=== PATIENT | male | born 1965 | race Caucasian/White ===

== ENCOUNTER 2016-12-02 16:52 | Observation (INO) | payer BC ==
[2016-12-02] MEDS ORDERED: SODIUM CHLORIDE 0.9% 1,000 ML IV STA ×2 (17:42)
[2016-12-02] MEDS ORDERED: ACETAMINOPHEN TAB 500 MG TAB PO STA (17:42)
[2016-12-02 18:03] LABS: Basophils # (A) 0.1 k/uL (0-0.2); Basophils % (A) 1 %; CH 31.7; CHCM 35.7; Eosinophils # (A) 0.1 k/uL (0-0.7); Eosinophils % (A) 2 %; HCT 41.8 % (39.0-53.0); HDW 2.59; HGB 14.8 gm/dL (13.0-17.5); Luc # (Auto) 0.13; Luc % (Auto) 2; Lymphocytes # (A) 1.2 k/uL (1.0-4.8); Lymphocytes % (A) 20 %; MCH 31.7 pg (25.0-35.0); MCHC 35.5 g/dL (31.0-37.0); MCV 89.3 fL (80.0-100.0); Mean Platelet Volume 7.8; Monocytes # (A) 0.4 k/uL (0-1.0); Monocytes % (A) 6 %; Neutrophils # (A) 4.2 k/uL (1.3-7.7); Neutrophils % (A) 69 %; RBC 4.68 m/uL (4.30-5.90); RDW 12.1 % (11.5-15.5); WBC 6.1 k/uL (3.8-10.6); WBC (Perox) 6.12
[2016-12-02 18:07] LABS: ALT 32 U/L (21-72); AST 28 U/L (17-59); Alkaline Phosphatase 71 U/L (38-126); Anion Gap 12 mmol/L; Blood Urea Nitrogen 12 mg/dL (9-20); Calcium 8.5 mg/dL (8.4-10.2); Carbon Dioxide 24 mmol/L (22-30); Chloride 104 mmol/L (98-107); Glucose 115 mg/dL (74-99); Magnesium 1.8 mg/dL (1.6-2.3); Non-African American GFR(MDRD) >60 (>60 ml/min/1.73 sqM); Phosphorous 2.9 mg/dL (2.5-4.5); Potassium 3.7 mmol/L (3.5-5.1); Sodium 140 mmol/L (137-145); Total Bilirubin 0.6 mg/dL (0.2-1.3); Total Protein 6.8 g/dL (6.3-8.2)
[2016-12-02 18:08] LABS: Partial Thromboplastin Time 22.5 sec (22.0-30.0); Prothrombin Time 10.4 sec (9.0-12.0)
[2016-12-02 18:17] LABS: Creatine Kinase 73 U/L (55-170)
--- NOTE | 2016-12-02 18:27 | XR ---
EXAMINATION TYPE: XR chest 2V DATE OF EXAM: 12/02/2016 6:08 PM COMPARISON: NONE HISTORY: Weakness TECHNIQUE: Frontal and lateral views of the chest are obtained. FINDINGS: Heart and mediastinum are normal. Lungs are clear. There are chest leads. Diaphragm is nor mal. Bony thorax is intact. IMPRESSION: Normal chest.
[2016-12-02 18:30] LABS: Creatine Kinase MB 0.4 ng/mL (0.0-2.4); Troponin I <0.012 ng/mL (0.000-0.034)
[2016-12-02 18:37] LABS: Appearance,Urine Clear (Clear); Bilirubin,Urine Negative (Negative); Glucose,Urine (UA) Negative (Negative); Ketones,Urine Negative (Negative); Leukocyte Esterase,Urine Negative (Negative); Nitrite,Urine Negative (Negative); PH, Urine 5.5 (5.0-8.0); Protein,Urine Trace (Negative); Specific Gravity,Urine 1.012 (1.001-1.035); UA Billing (MACRO vs. MICRO) CHEM; Urobilinogen,Urine <2.0 mg/dL (<2.0)
[2016-12-02] MEDS ORDERED: IPRATROPIUM-ALBUTEROL 3 ML NEB INHALATION STA (20:56)
[2016-12-02] MEDS ORDERED: LEVOFLOXACIN 750MG-D5W PMX 750 MG in DEXTROSE/WATER 1 150ML.BAG IVPB STA (20:57)
[2016-12-02] MEDS ORDERED: ASPIRIN 81 MG CHEW PO STA (20:57)
[2016-12-02] MEDS ORDERED: NITROGLYCERIN OINT 1 INCH/GM PACKET TOPICAL STA (20:57)
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
[2016-12-02] MEDS ORDERED: NITROGLYCERIN SL TABS 0.4 MG TAB SUBLINGUAL PRN (21:05)
[2016-12-02] MEDS ORDERED: IPRATROPIUM-ALBUTEROL 3 ML NEB INHALATION PRN (22:06)
[2016-12-02] MEDS: ENOXAPARIN 40 MG/0.4 ML SYRINGE SQ SCH (23:20)
[2016-12-03] MEDS ORDERED: IPRATROPIUM-ALBUTEROL 3 ML NEB INHALATION SCH
[2016-12-03] MEDS: TIMOLOL 0.5% OPHTH DROPS 5 ML BTL BOTH EYES SCH ×3 (00:14→20:00)
[2016-12-03 00:48] LABS: Creatine Kinase 57 U/L (55-170)
[2016-12-03 01:01] LABS: Creatine Kinase MB <0.2 ng/mL (0.0-2.4); Troponin I <0.012 ng/mL (0.000-0.034)
[2016-12-03 02:39] LABS: Cholesterol 153 mg/dL (<200); HDL Cholesterol 32 mg/dL (40-60); Triglycerides 136 mg/dL (<150)
[2016-12-03 04:09] LABS: Glucose,Whole Blood 112 mg/dL (75-99)
[2016-12-03] MEDS: NITROGLYCERIN OINT 1 INCH/GM PACKET TOPICAL SCH ×4 (05:09→20:01)
[2016-12-03 06:05] LABS: Creatine Kinase 54 U/L (55-170)
[2016-12-03 06:18] LABS: Creatine Kinase MB 0.3 ng/mL (0.0-2.4); Troponin I <0.012 ng/mL (0.000-0.034)
[2016-12-03] MEDS: PANTOPRAZOLE 40 MG TABLET PO SCH (12:21)
[2016-12-03] MEDS: LOSARTAN 50 MG TAB PO SCH (12:21)
[2016-12-03] MEDS: ASPIRIN 325 MG TAB PO SCH (12:21)
--- NOTE | 2016-12-03 12:44 | CONS ---
DATE OF CONSULTATION: Patient admitted to the hospital following a blood draw with syncopal episode, appears to be first episode, never happened before, definitely appears to be vasovagal syncope without any chest pain or pressure. Patient has been having some acute bronchitis with purulent sputum for the last few days prior to admission. Patient had low blood pressure drop from the dehydration and acute bronchitis. I do not think there are any cardiac problems. I did a stress Cardiolite study on him in 2012. Patient exercised on the Laz protocol for about 12 minutes, attained a peak heart rate metabolic length of 13 METS with normal stress echocardiogram. Patient has no major risk factors other than patient's age and hypertension, which is well controlled at present time. Will drop the losartan to 50 mg p.o. daily rather than 100. Other medications include Prilosec 20 mg p.o. daily. Patient is a former smoker, quit smoking a long time ago, history of hypertension, otherwise unremarkable. Physical examination revealed well-developed, well-nourished 51-year-old gentleman, not in any acute distress, oriented x3 with a pulse rate of 60 beats per minute and regular, blood pressure 96/52, respirations of 16. Head normocephalic. HEENT unremarkable. Neck is supple. No thyroid enlargement. CARDIAC EXAMINATION: S1 and S2. No gallops or murmurs are noted. Lungs are clinically clear to auscultation except for scattered rhonchi. ABDOMEN: Soft, no organomegaly. Active bowel sounds. EXTREMITIES: Peripheral pulses. No pedal edema. AERODYNAMICS PROFESSOR examination grossly within normal limits. EKG normal. Troponin x3 are negative. ASSESSMENT: 1. Vasovagal syncope. No further cardiac work-up is needed for this, associated with a blood draw. 2. Acute bronchitis being treated with antibiotics appropriately. RECOMMENDATIONS: No cardiac work-up is needed at the present time. Patient may go home any time either today or tomorrow and follow with Dr. Berumen. Will be more than happy to see him in the office if necessary.
--- NOTE | 2016-12-03 13:08 | ECHOF ---
Referral Reason: MEASUREMENTS -------- HEIGHT: 177.8 cm WEIGHT: 87.1 kg BP: 96/52 IVSd: 1.7 cm (0.6 - 1.1) LVIDd: 4.3 cm (3.9 - 5.3) LVPWd: 1.5 cm (0.6 - 1.1) IVSs: 1.9 cm LVIDs: 2.3 cm LVPWs: 2.2 cm Ao Diam: 2.9 cm (2.0 - 3.7) AV Cusp: 1.9 cm (1.5 - 2.6) LA Diam: 3.7 cm (2.7 - 3.8) MV EXCURSION: 15.271 mm (> 18.000) MV EF SLOPE: 112 mm/s (70 - 150) EPSS: 0.5 cm MV E Clement: 0.80 m/s MV DecT: 248 ms MV A Clement: 0.71 m/s MV E/A Ratio: 1.13 RAP: 5.00 mmHg RVSP: 23.87 mmHg FINDINGS -------- Sinus rhythm. This was a technically good study. The left ventricular size is normal. There is moderate concentric left ventricular hypertrophy. Overall left ventricular systolic function is normal with, an EF between 55 - 60 %. The right ventricle is normal in size and function. The left atrium is normal in size. The right atrium is normal in size. The aortic valve is trileaflet, and appears structurally normal. No aortic stenosis or regurgitation. The mitral valve is normal. Mild mitral regurgitation is present. The tricuspid valve appears structurally normal. Mild tricuspid regurgitation present. The right ventricular systolic pressure, as measured by Doppler, is 23.87mmHg. There is no pulmonic regurgitation present. The aortic root size is normal. There is no pericardial effusion. CONCLUSIONS -------- 1. Sinus rhythm. 2. There is no pulmonic regurgitation present. 3. The aortic root size is normal. 4. There is no pericardial effusion. 5. This was a technically good study. 6. There is moderate concentric left ventricular hypertrophy. 7. Overall left ventricular systolic function is normal with, an EF between 55 - 60 %. 8. The left atrium is normal in size. 9. The aortic valve is trileaflet, and appears structurally normal. No aortic stenosis or regurgitation. 10. Mild mitral regurgitation is present. 11. Mild tricuspid regurgitation present. 12. The right ventricular systolic pressure, as measured by Doppler, is 23.87mmHg. DENTIST ATTENDANT: Maribell Whitehead RDCS
[2016-12-03] MEDS: ENOXAPARIN 40 MG/0.4 ML SYRINGE SQ SCH (20:00)
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
[2016-12-03] MEDS ORDERED: LEVOFLOXACIN 750MG-D5W PMX 750 MG in DEXTROSE/WATER 1 150ML.BAG IVPB SCH (22:00)
[2016-12-04 03:41] VITALS: RESP 16
[2016-12-04 07:41] VITALS: BP 118/71; PULSE 51; TEMP 98.7
[2016-12-04] MEDS: PANTOPRAZOLE 40 MG TABLET PO SCH (09:02)
[2016-12-04] MEDS: ASPIRIN 325 MG TAB PO SCH (09:02)
[2016-12-04] MEDS: TIMOLOL 0.5% OPHTH DROPS 5 ML BTL BOTH EYES SCH (09:02)
[2016-12-04] MEDS: LOSARTAN 50 MG TAB PO SCH (09:04)
== END 2016-12-04 10:02 | disposition home or self-care (01) ==
LOC: EC 16:52 → 3OBS 21:09
PROVIDERS: ADMIT Family Medicine; ATTEND Family Medicine
DX: J20.9 Acute bronchitis, unspecified (principal); R55 Syncope and collapse; E86.0 Dehydration; I95.9 Hypotension, unspecified; M79.1 Myalgia; I10 Essential (primary) hypertension; Z79.899 Other long term (current) drug therapy; Z87.891 Personal history of nicotine dependence; Z83.3 Family history of diabetes mellitus
CPT/HCPCS: 99285; 96365; 96361 ×4; 36415; 94640; 93005; 93306; 80061; 80053; 82550 ×2; 82553 ×2; 83735; 84100; 84443; 84484 ×2; 85025; 85610; 85730; 81003; 87040; 87502; 71020; G0378 ×3; J1650; J1956 ×2; 96366

== ENCOUNTER 2018-10-06 14:31 | Emergency (ER) | payer BC ==
[2018-10-06 14:36] VITALS: RESP 18
--- NOTE | 2018-10-06 15:38 | US ---
EXAMINATION TYPE: US axilla LT DATE OF EXAM: 10/06/2018 COMPARISON: NONE CLINICAL HISTORY: Pain. Left Axilla palpable noted x 3 days with soreness and patient stated was january [place]. Lt Axillary US: heterogeneous mass noted at patient's palpable and size = 4.8 x 3.7 x 3.0cm. IMPRESSION: As above, heterogeneous mass favors abnormal adenopathy. Findings do not correlate with patient's history. No well-formed fluid collection to suggest abscess or hematoma is noted. Advise la b and clinical correlation. At minimum repeat ultrasound in 2-4 weeks' time is advised to reassess.
[2018-10-06 16:02] LABS: Basophils # (A) 0.1 k/uL (0-0.2); Basophils % (A) 1 %; Eosinophils # (A) 0.3 k/uL (0-0.7); Eosinophils % (A) 3 %; HCT 42.7 % (39.0-53.0); HGB 14.7 gm/dL (13.0-17.5); Lymphocytes # (A) 1.6 k/uL (1.0-4.8); Lymphocytes % (A) 20 %; MCH 31.2 pg (25.0-35.0); MCHC 34.4 g/dL (31.0-37.0); MCV 90.7 fL (80.0-100.0); Mean Platelet Volume 7.2; Monocytes # (A) 0.5 k/uL (0-1.0); Monocytes % (A) 6 %; Neutrophils # (A) 5.5 k/uL (1.3-7.7); Neutrophils % (A) 67 %; Platelet Count 209 k/uL (150-450); RBC 4.71 m/uL (4.30-5.90); RDW 12.7 % (11.5-15.5); WBC 8.2 k/uL (3.8-10.6)
[2018-10-06 16:05] LABS: ALT 25 U/L (21-72); AST 18 U/L (17-59); Albumin 4.2 g/dL (3.5-5.0); Alkaline Phosphatase 92 U/L (38-126); Anion Gap 7 mmol/L; Blood Urea Nitrogen 19 mg/dL (9-20); Carbon Dioxide 26 mmol/L (22-30); Chloride 109 mmol/L (98-107); Glucose 104 mg/dL (74-99); Sodium 142 mmol/L (137-145); Total Bilirubin 0.7 mg/dL (0.2-1.3); Total Protein 7.1 g/dL (6.3-8.2)
--- NOTE | 2018-10-06 16:10 | ED ---
General Adult HPI - General Chief complaint: Skin/Abscess/Foreign Body Stated complaint: lump under arm Time Seen by Provider: 10/06/18 14:37 Source: patient, RN notes reviewed, old records reviewed Mode of arrival: ambulatory Limitations: no limitations - History of Present Illness Initial comments: 53-year-old male patient past medical history of hypertension plus ED with mass in left axilla. Patient reports that he noticed mass approximately 3 days ag, states that is increased in size. Patient reports that mass in his L axilla. State ssize is approximately 4 x 4 centimeters in diameter is mildly tender to touch, but is been no redness no warmth or drainage. Patient additionally denies any fevers chills, nausea vomiting diarrhea, patient denies all other complaints. Patient has secondary complaint of mild inflammation and pad of right thumb where patient had a thorn from a chidi stuck approximately 3 weeks ago. Area appears to be healing well but he does have some local redness, requests antibiotic to prevent infection. Systemic: Pt denies fatigue, myalgia, fever/chills, rash. Pt denies weakness, night sweats, weight loss. Neuro: Pt denies headache, visual disturbances, syncope or pre-syncope. HEENT: Pt denies ocular discharge or irritation, otalgia, rhinorrhea, pharyngitis or notable lymphadenopathy. Cardiopulmonary: Pt denies chest pain, SOB, heart palpitations, dyspnea on exertion. Abdominal/GI: Pt denies abdominal pain, n/v/d. : Pt denies dysuria, burning w/ urination, frequency/urgency. Denies new onset urinary or bowel incontinence. MSK: Pt denies myalgia, loss of strength or function in extremities. Neuro: Pt denies new onset weakness, paresthesias. - Related Data Home Medications Medication Instructions Recorded Confirmed Losartan Potassium [Cozaar] 50 mg PO DAILY 12/02/16 12/04/16 Omeprazole [PriLOSEC] 20 mg PO AC-BRKFST 12/02/16 12/02/16 Timolol 0.5% Ophth Soln [Timoptic 1 drop BOTH EYES BID 12/02/16 12/02/16 0.5% Ophth Soln] Previous Rx's Medication Instructions Recorded Cephalexin [Keflex] 500 mg PO Q12HR 10 Days cap 10/06/18 Allergies Allergy/AdvReac Type Severity Reaction Status Date / Time [place] And Derivatives Allergy Unknown Verified 10/06/18 14:36 [Bosque] Review of Systems ROS Statement: Those systems with pertinent positive or pertinent negative responses have been documented in the HPI. ROS Other: All systems not noted in ROS Statement are negative. Past Medical History Past Medical History: Hypertension Additional Past Medical History / Comment(s): ulcer History of Any Multi-Drug Resistant Organisms: None Reported Past Surgical History: Hernia Repair, Tonsillectomy Additional Past Surgical History / Comment(s): colonoscopy with 2 polyp removal Past Anesthesia/Blood Transfusion Reactions: No Reported Reaction Past Psychological History: No Psychological Hx Reported Smoking Status: Former smoker Past Alcohol Use History: Rare Past Drug Use History: None Reported - Past Family History Mother Family Medical History: Cancer Additional Family Medical History / Comment(s): uterine Father Family Medical History: Diabetes Mellitus, Hypertension Brother(s) Family Medical History: Cancer Sister(s) Family Medical History: No Reported History Son(s) Family Medical History: No Reported History Daughter(s) Family Medical History: No Reported History General Exam - General Exam Comments Initial Comments: Constitutional: NAD, AOX3, Pt has pleasant affect. HEENT: NC/AT, trachea midline, neck supple, no lymphadenopathy. Posterior pharynx non erythematous, without exudates. External ears appear normal, without discharge. Mucous membranes moist. Eyes PERRLA, EOM intact. There is no scleral icterus. No pallor noted. Cardiopulmonary: RRR, no murmurs, rubs or gallops, no JVD noted. Lungs CTAB in anterior and posterior tejeda. No peripheral edema. Abdominal exam: Abdomen soft and non-distended. Abdomen non-tender to palpation in all 4 quadrants. Bowel sounds active in LLQ. No hepatosplenomegaly. No ecchymosis Neuro: CN II-XII grossly intact. No nuchal rigidity. MSK: Approximately 4x4cm mass noted in L axilla, no localized erythema or drainge. Mildly tender to palpation. No posterior calf tenderness bilaterally, homans sign negative bilaterally. Posterior tibialis and radial pulse +2 bilaterally. Sensation intact in upper and lower extremities. Full active ROM in upper and lower extremities, 5/5 stregnth. Small amount of localized erythema at pad on R thumb, no pain with passive flexion, no flexor tendon sheath tenderness, full active ROM, no discharge or erythema. Limitations: no limitations Course Vital Signs 10/06/18 14:32 Temperature 98.2 F Pulse Rate 73 Respiratory 18 Rate Blood Pressure 159/88 O2 Sat by Pulse 95 Oximetry Medical Decision Making - Medical Decision Making 53-year-old male patient past medical history of hypertension plus ED with mass in left axilla. Patient reports that he noticed mass approximately 3 days ag, states that is increased in size. Patient reports that mass in his L axilla. State size is approximately 4 x 4 centimeters in diameter is mildly tender to touch, but is been no redness no warmth or drainage. Patient has secondary complaint of mild inflammation and pad of right thumb where patient had a thorn from a chidi stuck approximately 3 weeks ago. Area appears to be healing well but he does have some local redness, requests antibiotic to prevent infection. Patient additionally denies any fevers chills, nausea vomiting diarrhea, patient denies all other complaints. Pt VSS, afebrile. Physical exam displayed: Approximately 4x4cm mass noted in L axilla, no localized erythema or drainge. Mildly tender to palpation. Radial pulse +2, sensation intact, strength 5/5. Small amount of localized erythema at pad on R thumb, no pain with passive flexion, no flexor tendon sheath tenderness, full active ROM, no discharge or erythema. Laboratory investigations revealed non-impressive CBC, CMP. Ultrasound of left axilla displayed a heterogeneous mass which there is adenopathy. No well-formed fluid collection to suggest abscess or hematoma. Findings explained to patient at length. Patient verbalized understanding. Patient to follow with primary care provider tomorrow for continued evaluation. Explained to patient the importance of close follow-up for this, patient verbalized understanding. Patient to return to ED if new signs or symptoms develop or if condition worsens in any way. Patient discussed in depth and seen by Dr. Buitrago. - Lab Data Result diagrams: 10/06/18 15:23 10/06/18 15:23 Lab Results 10/06/18 10/06/18 Range/Units 15:23 15:23 WBC 8.2 (3.8-10.6) k/uL RBC 4.71 (4.30-5.90) m/uL Hgb 14.7 (13.0-17.5) gm/dL Hct 42.7 (39.0-53.0) % MCV 90.7 (80.0-100.0) fL MCH 31.2 (25.0-35.0) pg MCHC 34.4 (31.0-37.0) g/dL RDW 12.7 (11.5-15.5) % Plt Count 209 (150-450) k/uL Neutrophils % 67 % Lymphocytes % 20 % Monocytes % 6 % Eosinophils % 3 % Basophils % 1 % Neutrophils # 5.5 (1.3-7.7) k/uL Lymphocytes # 1.6 (1.0-4.8) k/uL Monocytes # 0.5 (0-1.0) k/uL Eosinophils # 0.3 (0-0.7) k/uL Basophils # 0.1 (0-0.2) k/uL Sodium 142 (137-145) mmol/L Potassium 4.0 (3.5-5.1) mmol/L Chloride 109 H (98-107) mmol/L Carbon Dioxide 26 (22-30) mmol/L Anion Gap 7 mmol/L BUN 19 (9-20) mg/dL Creatinine 1.07 (0.66-1.25) mg/dL Est GFR (CKD-EPI)AfAm >90 (>60 ml/min/1.73 sqM) Est GFR (CKD-EPI)NonAf 79 (>60 ml/min/1.73 sqM) Glucose 104 H (74-99) mg/dL Calcium 9.0 (8.4-10.2) mg/dL Total Bilirubin 0.7 (0.2-1.3) mg/dL AST 18 (17-59) U/L ALT 25 (21-72) U/L Alkaline Phosphatase 92 (38-126) U/L Total Protein 7.1 (6.3-8.2) g/dL Albumin 4.2 (3.5-5.0) g/dL Disposition Clinical Impression: Adenopathy Disposition: HOME SELF-CARE Condition: Stable Instructions (If sedation given, give patient instructions): Lymphadenopathy ( ED) Additional Instructions: Patient to adhere to previously discussed treatment plan and will take medication(s) as directed. Patient to follow up with PCP in 1-2 days. Patient to return to ED if symptoms do not improve. Prescriptions: Cephalexin [Keflex] 500 mg PO Q12HR 10 Days cap Is patient prescribed a controlled substance at d/c from ED?: No Referrals: Jeffrey Berumen MD [Primary Care Provider] - 1-2 days
[2018-10-06 16:54] VITALS: BP 145/74; PULSE 93; TEMP 98
== END 2018-10-06 16:54 | disposition home or self-care (01) ==
LOC: EC 14:31
DX: R59.0 Localized enlarged lymph nodes (principal); I10 Essential (primary) hypertension; Z87.891 Personal history of nicotine dependence; Z98.890 Other specified postprocedural states; Z79.899 Other long term (current) drug therapy; Z91.018 Allergy to other foods
CPT/HCPCS: 36415; 80053; 85025; 99284

== ENCOUNTER 2021-09-07 06:15 | Day surgery (SDC) | payer BC ==
[2021-09-03 12:06] VITALS: BMI 25.7
[~2021-09-07 06:15] MED LIST: DEXAMETHASONE SOD PHOSPHATE 4 MG/ML 1 ML VIAL IV ONE; LACTATED RINGERS 1,000 ML IV SCH; LIDOCAINE 1% (10MG/ML) FOR IV START INTRADERMA PRN; ONDANSETRON 4 MG/2 ML VIAL IVP ONE; Pre Op ABX Message 1 EACH MISC MISCELLANE ONE
[2021-09-07 06:52] VITALS: RESP 16
[2021-09-07] MEDS ORDERED: HYDROmorphone 0.5 MG/0.5 ML SYRINGE IVP PRN (07:00)
[2021-09-07] MEDS ORDERED: MIDAZOLAM 2 MG/2 ML VIAL IV ONE (07:21)
[2021-09-07] MEDS ORDERED: MIDAZOLAM 2 MG/2 ML VIAL ONE (07:54)
[2021-09-07] MEDS ORDERED: fentaNYL (PF) 50 MCG/ML 2 ML AMP ONE (07:54)
[2021-09-07] MEDS ORDERED: PROPOFOL 10 MG/ML 20 ML VIAL IV ONE (07:54)
[2021-09-07] MEDS ORDERED: LIDOCAINE 1% INJ 10MG/ML (20 ML MDV) ONE (07:54)
[2021-09-07] MEDS ORDERED: ROPIVACAINE 5 MG/ML 30 ML VIAL ONE (07:54)
--- NOTE | 2021-09-07 08:16 | P.ANPRN ---
Procedure Note - Anesthesia - Nerve Block Performed Left Adductor Canal Single Time Out Performed: Yes (0720) Date of Procedure: 09/07/21 Procedure Start Time: : Procedure Stop Time: :32 Location of Patient: PreOp Indication: Acute Post-Operative Pain, Analgesia, Requested by Surgeon Sedation Type: Sedate with meaningful contact maintained Preparation: Sterile Prep, Sterile Dressing Position: Supine Catheter: None Needle Types: Pajunk Needle Gauge: 20 Ultrasound used to visualize needle placement: Yes Ultrasound used to observe medication spread: Yes Injectate: 0.5% Ropivacaine (see comment for volume) (10 mL of 0.5% ropivacaine mixed with 10 mL of 0.9% preservative-free normal saline) Blood Aspirated: No Pain Paresthesia on Injection Noted: No Resistance on Injection: Normal Image Stored and Saved: Yes Events: Uneventful and Well Tolerated
--- NOTE | 2021-09-07 08:18 | P.ANPRN ---
Procedure Note - Anesthesia - Nerve Block Performed Left Popliteal Single Time Out Performed: Yes (0720) Date of Procedure: 09/07/21 Procedure Start Time: : Procedure Stop Time: :32 Location of Patient: PreOp Indication: Acute Post-Operative Pain, Analgesia, Dx/Pain Location, Requested by Surgeon Sedation Type: Sedate with meaningful contact maintained Preparation: Sterile Prep, Sterile Dressing Position: Right Lateral Catheter: None Needle Types: Pajunk Needle Gauge: 20 Ultrasound used to visualize needle placement: Yes Ultrasound used to observe medication spread: Yes Injectate: 0.5% Ropivacaine (see comment for volume) (12 mL of 0.5% ropivacaine mixed with 10 mL of 0.9% normal saline preservative-free) Blood Aspirated: No Pain Paresthesia on Injection Noted: No Resistance on Injection: Normal Image Stored and Saved: Yes Events: Uneventful and Well Tolerated
[2021-09-07] MEDS ORDERED: LACTATED RINGERS 1,000 ML IV ONE (09:02)
[2021-09-07 09:35] VITALS: TEMP 98
--- NOTE | 2021-09-07 09:40 | P.OP ---
Date of Procedure: 09/07/21 Preoperative Diagnosis: 1. Left ankle instability 2. Osteochondral lesion left talus Postoperative Diagnosis: 1. Same 2. Same Procedure(s) Performed: 1. Secondary repair of left lateral ankle ligaments 2. Curettage of left talus osteochondral lesion Implants: Arthrex internal brace Arthrex fiber Andrew anchors 2 Anesthesia: GETA Surgeon: Donald June Estimated Blood Loss (ml): 5 Pathology: none sent Condition: stable Disposition: PACU Indications for Procedure: Painful left ankle unresponsive to conservative treatment Operative Findings: Fragmented full-thickness osteochondral defect on the lateral shoulder of the t alar dome. There was no intact cartilage over the lesion. Unable to perform subchondroplasty type procedure on lesion Description of Procedure: Prior to the patient being brought to the operating room anesthesia administered nerve block and left lower extremity. The patient was then brought into the operative room placed on table supine position. Timeout was taken to confirm correct patient identifiers, correct procedure, and correct site of surgery. When all staff in the room were in agreement with the timeout, the patient was induced and placed under general anesthesia. A well-padded tourniquet was placed on the left midcalf. A bump was placed underneath the left hip to internally rotate the left leg. The left leg was then prepped and draped in usual manner. The leg was exsanguinated with an Esmarch bandage and the tourniquet inflated to 250 mmHg. Attention was directed over the anterior lateral ankle where incision was made just anterior to lateral malleolus. The incision was deepened down to the subcutaneous tissue careful to identify, avoid, and retract any neurovascular structures and cauterize any bleeding vessels. Blunt dissection was then carried down to level ankle joint capsule. The tissue was incised off the anterior surface the lateral malleolus. There was a large osseous fragment adhered with fibrous tissue to the lateral portion of the talus. This bone was sharply dissected and fully excised. The cortical bone of the anterior surface of the lateral malleolus was also removed with a Wei and all roughened edges smoothed with a rasp. Then attention was directed to the lateral talar dome where the osteochondral lesion was located. Initially there was a free-floating bony fragments that were removed upon further inspection the lesion was unstable and fragmented. There was no intact overlying cartilage. All bony fragments and portions of cartilage were sharply removed with a curette down to solid osseous base. Given the size of the lesion and that there was no overlying tissue the subchondralplasty was unable to be performed. Therefore the lesion was drilled with a small K wire to fenestrate it to promote fibrocartilage ingrowth. Attention was then turned to the ankle stabilization, where the 3.4 mm drill hole into the talus was made on the lateral aspect of the body anterior to the trochlear surface and at the junction of the neck. A drill bit was angulated to avoid the subtalar and ankle joints. The drill hole was tapped and the 4.75 anchor inserted to proper depth. The same drill was used for the drill hole the lateral malleolus to except a 3.5 mm anchor. Drill holes for the Arthrex fiber Andrew anchors were made one superior and one inferior to the 3.4 mm drill hole. The fiber Andrew anchors were inserted and impacted into the bone. The tip inserter was removed and then tension placed on the suture to lock it in place. The wound is then thoroughly irrigated with antibiotic saline. The fiber Andrew suture was used to repair the lateral ankle ligaments back to the anterior surface of the lateral malleolus. The suture was tied while holding the ankle maximally dorsiflexed and everted. The suture arms of the 4.75 anchor were then placed through the 3.5 mm anchor which was alignment of the drill hole lateral malleolus. Proper described tensioning techniques were utilized and then the anchor was inserted with the suture. Morley was advanced to lock the suture in place. Ankle was tested for stability that show that anterior drawer and inversion stress are negative. The suture from the fiber Andrew anchors was then used as sew the soft tissue flap in the lateral malleolus over the repair site in a pants over vest fashion. The wound is again irrigated with antibiotic saline. Subcu closure done for Monocryl. Skin closure was done with 4-0 Stratafix in a running subcuticular manner. Dermal glue was applied and allowed to dry and then Steri-Strips were placed across the incision. An Arthrex jumpstart dressing was placed over the incision and then a bulky dry dressing applied to the ankle. The tourniquet was released and the capillary refill return to all digits on the left foot. Then the patient was placed in a well molded, well padded plaster posterior mold/sugar tong splint. Ankle was held at 90 and in neutral inversion/eversion as the splint dried. The patient tolerated above procedure and anesthesia well and went to recovery with vital signs stable.
[2021-09-07 10:08] VITALS: PULSE 72
[2021-09-07 10:16] VITALS: BP 109/63
== END 2021-09-07 10:41 | disposition home or self-care (01) ==
LOC: OR 06:15
PROVIDERS: ATTEND Podiatrist
DX: M25.372 Other instability, left ankle (principal); M24.072 Loose body in left ankle; I10 Essential (primary) hypertension; H91.90 Unspecified hearing loss, unspecified ear; H53.8 Other visual disturbances; Z79.1 Long term (current) use of non-steroidal anti-inflammatories (NSAID); Z79.899 Other long term (current) drug therapy; Z98.890 Other specified postprocedural states; Z83.3 Family history of diabetes mellitus; Z87.891 Personal history of nicotine dependence; Z91.018 Allergy to other foods
CPT/HCPCS: 27870; 28725; 64447; 64445; 76942; C1713 ×2; J2250; J1100; J0690; J2405; J2001; J3010; J2795; J2704

== ENCOUNTER 2022-07-11 11:11 | Day surgery (SDC) | payer BC ==
[~2022-07-11 11:11] MED LIST changes: +ACETAMINOPHEN TAB 500 MG TAB PO PRN; +HEPARIN SODIUM,PORCINE/PF 5,000 UNIT/0.5 ML SYRINGE SQ PRN; -LIDOCAINE 1% (10MG/ML) FOR IV START INTRADERMA PRN; -Pre Op ABX Message 1 EACH MISC MISCELLANE ONE
[2022-07-11] MEDS ORDERED: BUPIVACAINE (PF) 0.25% 30 ML VIAL SQ ONE ×2 (12:40→14:16)
[2022-07-11] MEDS ORDERED: MIDAZOLAM 2 MG/2 ML VIAL ONE (13:00)
[2022-07-11] MEDS ORDERED: KETOROLAC 15 MG/ML 1 ML VIAL ONE (13:00)
[2022-07-11] MEDS ORDERED: NEOSTIGMINE 1 MG/ML 10 ML VIAL ONE (13:00)
[2022-07-11] MEDS ORDERED: SUCCINYLCHOLINE CHLORIDE 200 MG/10 ML VIAL IV ONE (13:00)
[2022-07-11] MEDS ORDERED: PROPOFOL 10 MG/ML 20 ML VIAL IV ONE (13:00)
[2022-07-11] MEDS ORDERED: ROCURONIUM 10 MG/ML (5 ML VIAL) IV ONE (13:00)
[2022-07-11] MEDS ORDERED: fentaNYL (PF) 50 MCG/ML 2 ML AMP ONE (13:00)
[2022-07-11] MEDS ORDERED: GLYCOPYRROLATE 0.2 MG/ML 2 ML VIAL ONE (13:00)
[2022-07-11] MEDS ORDERED: LIDOCAINE 2% INJ 20 MG/ML (2 ML VIAL) ONE (13:00)
--- NOTE | 2022-07-11 13:09 | P.GSHP ---
History of Present Illness H&P Date: 07/11/22 Chief Complaint: Incarcerated umbilical hernia 57-year-old male here today for elective repair umbilical hernia was last seen in the office in March. Hernia has been there for the last year or so. Thinks it started after Covid. Thinks it has gotten larger since his last visit. Past Medical History Past Medical History: Hearing Disorder / Deafness, Hypertension Additional Past Medical History / Comment(s): Hx ulcer. Hard of hearing left ear. History of Any Multi-Drug Resistant Organisms: None Reported Past Surgical History: Hernia Repair, Tonsillectomy Additional Past Surgical History / Comment(s): Colonoscopy with 2 polyp removal. inguinal hernia x3 repairs Past Anesthesia/Blood Transfusion Reactions: No Reported Reaction Smoking Status: Former smoker - Past Family History Mother Family Medical History: Cancer Additional Family Medical History / Comment(s): Uterine Cancer. Father Family Medical History: Diabetes Mellitus, Hypertension Brother(s) Family Medical History: Cancer Sister(s) Family Medical History: No Reported History Son(s) Family Medical History: No Reported History Daughter(s) Family Medical History: No Reported History Medications and Allergies Home Medications Medication Instructions Recorded Confirmed Type Losartan Potassium [Cozaar] 50 mg PO QAM 12/02/16 07/11/22 History Allergies Allergy/AdvReac Type Severity Reaction Status Date / Time [place] And Derivatives Allergy Unknown Verified 07/11/22 11:59 [[place]] Surgical - Exam Vital Signs Temp Pulse Resp BP Pulse Ox 98.2 F 63 18 151/76 98 07/11/22 12:05 07/11/22 12:05 07/11/22 12:05 07/11/22 12:05 07/11/22 12:05 Physical exam: General: Well-developed, well-nourished HEENT: Normocephalic, sclerae nonicteric Abdomen: Nontender, nondistended, incarcerated umbilical hernia Extremities: No edema Neuro: Alert and oriented Assessment and Plan (1) Incarcerated umbilical hernia Narrative/Plan: 49-year-old male with incarcerated umbilical hernia. We'll proceed with open repair with mesh at this time. Risks of bleeding, infection, recurrence, bladder and bowel injury, numbness, nerve injury were discussed with the patient. The patient understands and wishes to proceed. Current Visit: Yes Status: Acute Code(s): K42.0 - UMBILICAL HERNIA WITH OBSTRUCTION, WITHOUT GANGRENE SNOMED Code(s): 396634575
[2022-07-11] MEDS ORDERED: LACTATED RINGERS 1,000 ML IV ONE (14:16)
--- NOTE | 2022-07-11 14:43 | P.OP ---
Date of Procedure: 07/11/22 Procedure(s) Performed: PREOPERATIVE DIAGNOSIS: Incarcerated umbilical hernia POSTOPERATIVE DIAGNOSIS: Incarcerated umbilical and ventral hernia PROCEDURE: Open repair incarcerated umbilical and ventral hernia repair with mesh SURGEON: Dr. Poole ANESTHESIA: General OPERATIVE PROCEDURE DETAILS: The patient was placed in the operating table in the supine position. A n incision was made from the supraumbilical location vertically to the right of the umbilicus. The subcutaneous tissues were dissected bluntly and with cautery. The patient was found to have 2 separate hernia sacs. One was a umbilical defect measuring approximately 1.5 cm in diameter the other was a ventral hernia approximate 1 cm superior to this measuring 1.5-2 cm in diameter. These were included into one opening. The preperitoneal space was then dissected using blunt dissection and electrocautery. The 8 cm round ventral ex mesh was placed beneath the fascia and sutured in place using circumferential trans-fascial 0 Ethibond sutures. The defect was closed using interrupted Ethibond mattress sutures. The folding edge was sutured down using interrupted 0 Ethibond sutures as well. The subcutaneous tissues were reapproximated using inverted 2-0 & 3-0 Vicryl sutures. The umbilicus was tacked back down to the fascia using a 2-0 Vicryl suture. The skin was closed using 4-0 Monocryl sutures. Skin glue and sterile dressings were then applied. HERNIA CHARACTERISTICS: Length: 2 cm Width: 5cm Type: Umbilical and ventral TYPE OF MESH USED: 8 cm ventral ex LOCATION OF MESH: Sub-lay FIXATION: Trans-fascial 0 Ethibond PREOPERATIVE DISCUSSION ON SMOKING CESSASTION: Yes PREOPERATIVE DISCUSSION ON MORBID OBESITY: Yes PREOPERATIVE DISCUSSION ON APPROPRIATE USE OF NARCOTIC USE: Yes PREOPERATIVE EDUCATION: Multi Modal, Smoking Cessation and Weight Loss with BMI over 35. DISPOSITION: Stable to recovery room
[2022-07-11] MEDS ORDERED: ACETAMINOPHEN TAB 325 MG TAB PO SCH (14:45)
[2022-07-11] MEDS: HYDROmorphone 0.5 MG/0.5 ML SYRINGE IVP PRN ×2 (15:00→15:29)
[2022-07-11 15:21] VITALS: TEMP 97.6
[2022-07-11 16:03] VITALS: RESP 18
[2022-07-11] MEDS ORDERED: ONDANSETRON 4 MG/2 ML VIAL ONE (16:11)
[2022-07-11 16:49] VITALS: BP 122/76; PULSE 78
[2022-07-11] MEDS ORDERED: IBUPROFEN 600 MG TAB PO SCH (17:45)
== END 2022-07-11 17:05 | disposition home or self-care (01) ==
LOC: OR 11:11
PROVIDERS: ATTEND Surgery
DX: K42.0 Umbilical hernia with obstruction, without gangrene (principal); K43.6 Other and unspecified ventral hernia with obstruction, without gangrene; I10 Essential (primary) hypertension; H91.90 Unspecified hearing loss, unspecified ear; Z90.89 Acquired absence of other organs; Z98.890 Other specified postprocedural states; Z87.891 Personal history of nicotine dependence; Z80.49 Family history of malignant neoplasm of other genital organs; Z83.3 Family history of diabetes mellitus; Z82.49 Family history of ischemic heart disease and other diseases of the circulatory system; Z91.018 Allergy to other foods
CPT/HCPCS: 49561; 49587; 49568; C1781; J2250; J0330; J1100; J2710; J0690; J2405; J3010; J1885; J2704; J1170; J1644; J2001

== ENCOUNTER → 2022-10-04 | Outpatient (CLI) | payer BC ==
--- NOTE | 2022-10-06 08:17 | MR ---
EXAMINATION TYPE: MR lumbar spine wo con DATE OF EXAM: 10/04/2022 8:06 PM COMPARISON: None. CLINICAL INDICATION:Male, 57 years old with history of M48.061 SPINAL STENOSIS, LUMBAR REGION; Back P ain x10 Years - Pain travels down the right side TECHNIQUE: Multi planar, multi sequence imaging was performed utilizing: T1-weighted, T2-weighted, a nd turbo inversion recovery imaging of the lumbar spine. IV Contrast: None. FINDINGS: Alignment: The lumbar vertebral bodies have preserved heights and alignment. Cord: The conus medullaris and the distal spinal cord appear unremarkable with regards to their signa l intensity and morphology. Bones/Discs: Bone signal is within normal limits. Abnormal bony edema on inversion recovery sequences involving the left pedicle of L5. Multilevel degenerative disc disease is noted and most pronounced at the L3-L5. Mild disc desiccation in the lower lumbar spine T12-L1: No evidence of significant spinal canal stenosis or neural foraminal stenosis. L1-L2: No evidence of significant spinal canal stenosis or neural foraminal stenosis. L2-L3: No evidence of significant spinal canal stenosis or neural foraminal stenosis. L3-L4: Disc bulge and facet joint arthropathy result in mild spinal canal and moderate to severe left and mild right neural foraminal stenosis. L4-L5: Disc bulge and facet joint arthropathy result in mild spinal canal and moderate to severe and left and moderate right neural foraminal stenosis. L5-S1: The disc is rounded posterior morphology without significant spinal canal stenosis. Facet join t arthropathy with mild neural foraminal stenosis. Other findings: Parapelvic renal cysts bilaterally. IMPRESSION: 1. No definitive evidence of disc herniation or significant spinal canal stenosis. 2. Bony edema likely stress reaction of the left L5 pedicle. 3. Disc degeneration changes with neural foraminal stenosis worse on the left at L3-L4 and L4-L5 with moderate to severe stenosis.
== END | disposition home or self-care (01) ==
LOC: RADMRIMAIN 19:29
PROVIDERS: ATTEND Family Medicine
DX: M51.36 Other intervertebral disc degeneration, lumbar region (principal); M48.061 Spinal stenosis, lumbar region without neurogenic claudication; M99.73 Connective tissue and disc stenosis of intervertebral foramina of lumbar region; R60.0 Localized edema
CPT/HCPCS: 72148

== ENCOUNTER → 2022-10-07 | Outpatient (CLI) | payer BC ==
--- NOTE | 2022-10-09 13:05 | MR ---
EXAMINATION TYPE: MR ankle LT wo con DATE OF EXAM: 10/08/2022 COMPARISON: None. HISTORY: Left ankle pain, swelling, clicking, and limited range of movement for 3 years due to fall f rom 15 feet. Primary osteoarthritis per order. Standard multiplanar, multisequence MRI departmental protocol Multiplanar, multisequence images of the left ankle were acquired without contrast. FINDINGS: Distal Achilles tendon intact. Tiny posterior superior calcaneal spur sagittal image 12. Vi sualized plantar fascia intact. Moderate size inferior calcaneal spur sagittal image 15. Talar dome shows heterogeneous diminished T1 and increased T2 signal along the lateral posterior aspe ct measuring approximately 1.7 cm AP diameter sagittal image 12 x 1.6 cm transversely coronal image 2 7. Smaller 7 mm focal area of involvement anterior lateral talus seen sagittal image 11. There is obl ique oriented linear T1 signal in the anterior talus, suspect product of prior surgery. Correlate cli nically. Moderate spurring from the distal tibia is seen. There is linear diminished T1 signal anteri sree in the distal fibula suspected product of prior surgery. Normal sinus tarsi fat is seen. Mild to moderate narrowing at the talonavicular joint and moderate na rrowing at the calcaneocuboid joint. There is mild to moderate narrowing and mild spurring at the Lisfranc joints. No subluxation is seen. Bone marrow signal intensity is fairly well preserved. The peroneal tendons appear intact and within normal limits. The flexor tendons along posterior media l aspect of the ankle are intact. Anterior extensor tendons are intact. Medial deltoid ligament is intact. Anterior syndesmosis shows increased signal and thickening axial i mage 34. Similar finding posterior syndesmosis axial image 30. There is at least significant partial tearing of the anterior talofibular ligament below this. Posterior talofibular ligament remains intac t. IMPRESSION: 1. Grade 2 injury of the anterior and posterior syndesmosis. At least significant partial tearing of the anterior talofibular ligament. Suspect prior surgery in the left ankle. Correlate clinically. 2. Significant osteochondral injury involving the lateral aspect of the talar dome as detailed above. 3. Mild to moderate Degenerative changes mid foot and hindfoot level left ankle as detailed above.
== END | disposition home or self-care (01) ==
LOC: RADMRIMAIN 21:45
PROVIDERS: ATTEND Orthopaedic Surgery
DX: S93.492A Sprain of other ligament of left ankle, initial encounter (principal); M19.072 Primary osteoarthritis, left ankle and foot

== ENCOUNTER 2023-12-30 11:04 | Day surgery (SDC) | payer BC ==
[2023-12-29 10:37] VITALS: BMI 30.2
[2023-12-30] MEDS: LACTATED RINGERS 1,000 ML IV ONE ×2 (11:29→12:02)
[2023-12-30 12:00] VITALS: TEMP 98.3
[2023-12-30] MEDS ORDERED: PROPOFOL 10 MG/ML 20 ML VIAL IV ONE (12:03)
--- NOTE | 2023-12-30 12:15 | P.GSHP ---
History of Present Illness H&P Date: 12/30/23 Chief Complaint: Colon cancer screening with history of polyps 58-year-old male here for colonoscopy. Last colonoscopy 9 years ago. Says he had 2 polyps at the time. No bowel complaints. No family history of colon cancer. Past Medical History Past Medical History: GERD/Reflux, Hearing Disorder / Deafness, Hypertension Additional Past Medical History / Comment(s): Hx gastric ulcer. Hard of hearing left ear. History of Any Multi-Drug Resistant Organisms: None Reported Past Surgical History: Hernia Repair, Tonsillectomy Additional Past Surgical History / Comment(s): Colonoscopy with 2 polyp removal. inguinal hernia x3 repairs Past Anesthesia/Blood Transfusion Reactions: No Reported Reaction Additional Past Anesthesia/Blood Transfusion Reaction / Comment(s): no hx blood transfusion Smoking Status: Former smoker - Past Family History Mother Family Medical History: Cancer Additional Family Medical History / Comment(s): Uterine Cancer. Father Family Medical History: Dementia, Diabetes Mellitus, Hypertension Brother(s) Family Medical History: Cancer Additional Family Medical History / Comment(s): lung CA Sister(s) Family Medical History: No Reported History Son(s) Family Medical History: No Reported History Daughter(s) Family Medical History: No Reported History Medications and Allergies Home Medications Medication Instructions Recorded Confirmed Type Losartan Potassium [Cozaar] 50 mg PO QAM 12/02/16 12/30/23 History Omeprazole [PriLOSEC] 20 mg PO QAM PRN 12/29/23 12/30/23 History Allergies Allergy/AdvReac Type Severity Reaction Status Date / Time [place] And Derivatives Allergy Anaphylaxis Verified 12/30/23 11:15 [[place]] Surgical - Exam Vital Signs Temp Pulse Resp BP Pulse Ox 98.3 F 58 L 14 144/74 97 12/30/23 11:19 12/30/23 11:19 12/30/23 11:19 12/30/23 11:19 12/30/23 11:19 Physical exam: General: Well-developed, well-nourished HEENT: Normocephalic, sclerae nonicteric Abdomen: Nontender, nondistended Extremities: No edema Neuro: Alert and oriented Assessment and Plan (1) Colon cancer screening Narrative/Plan: Will proceed with colonoscopy at this time. Current Visit: Yes Status: Acute Code(s): Z12.11 - ENCOUNTER FOR SCREENING FOR MALIGNANT NEOPLASM OF COLON SNOMED Code(s): 545669493
--- NOTE | 2023-12-30 12:16 | P.PCN ---
Date of Procedure: 12/30/23 Procedure(s) Performed: PREOPERATIVE DIAGNOSIS: Colon cancer screening with history of polyps POSTOPERATIVE DIAGNOSIS: Normal exam PROCEDURE: Colonoscopy ANESTHESIA: MAC SURGEON: Arthur Poole M.D. SPECIMENS: None ENDOSCOPIC PROCEDURE: The patient was placed on the endoscopy table in the left decubitus position. The Olympus colonoscope was inserted into the anus and passed under direct visualization to the base of the cecum. The appendiceal orifice was visualized. From that point the scope was slowly withdrawn inspecting all surfaces carefully. There were no neoplastic inflammatory or polypoid lesions throughout the cecum, ascending, transverse, descending, sigmoid and rectum. There was no visible diverticulosis noted. Digital rectal examination was normal. The patient was taken to the recovery room in stable condition per anesthesia guidelines. RECOMMENDATIONS: Resume diet. Repeat colonoscopy 7 years.
[2023-12-30 12:45] VITALS: BP 126/80; PULSE 57; RESP 16
== END 2023-12-30 12:59 | disposition home or self-care (01) ==
LOC: ORWHC2ENDO 11:04
PROVIDERS: ATTEND Surgery
DX: Z12.11 Encounter for screening for malignant neoplasm of colon (principal); I10 Essential (primary) hypertension; K21.9 Gastro-esophageal reflux disease without esophagitis; Z87.11 Personal history of peptic ulcer disease; Z90.49 Acquired absence of other specified parts of digestive tract; Z98.890 Other specified postprocedural states; Z87.891 Personal history of nicotine dependence; Z82.49 Family history of ischemic heart disease and other diseases of the circulatory system; Z83.3 Family history of diabetes mellitus; Z86.010 Personal history of colon polyps; Z80.1 Family history of malignant neoplasm of trachea, bronchus and lung; Z91.018 Allergy to other foods; Z79.899 Other long term (current) drug therapy
CPT/HCPCS: 45378; J2704